=== PATIENT | male | born 1985 | race Two or more races ===

== ENCOUNTER 2022-05-02 11:14 | Emergency (ER) | payer OTHER, MEDICAID ==
[~2022-05-02] VITALS: Ht 180.3 cm; Wt 89.0 kg
[2022-05-02] MEDS ORDERED: NAP500T PO (17:44)
[2022-05-02 17:53] VITALS: BP 127/73
== END 2022-05-02 18:05 | disposition home or self-care (01) ==
LOC: ER 11:14
DX: S46.912A Strain of unspecified muscle, fascia and tendon at shoulder and upper arm level, left arm, initial encounter (principal); X58.XXXA Exposure to other specified factors, initial encounter; Y93.89 Activity, other specified; Y92.89 Other specified places as the place of occurrence of the external cause; Y99.8 Other external cause status
CPT/HCPCS: 73030